=== PATIENT | female | born 1955 | race Caucasian/White ===

== ENCOUNTER 2016-09-05 15:38 | Inpatient (IN) | payer OTHER ==
[~2016-09-05] VITALS: Ht 160 cm; Wt 63.5 kg
[2016-09-05 16:17] LABS: BASOPHILS 0.8 % (0.0-2.0); EOSINOPHILS 14.6 % (0-7); HEMATOCRIT 44.5 % (36.0-48.0); HEMOGLOBIN 15.4 g/dL (12-16); IMMATURE GRANULOCYTES 0.2 % (0-5); MCH 32.5 pg (26.0-34.0); MCHC 34.6 g/dL (31.0-37.0); MCV 93.9 fL (80.0-100.0); MEAN PLATELET VOLUME 9.8 fL (7.4-10.4); MONOCYTES 9.7 % (2-11); NEUTROPHILS 47.7 % (40-80); PLATELET COUNT 228 10x3/uL (130-400); RBC 4.74 10x6/uL (4.00-5.40); RDW 13.4 % (11.5-14.5); WBC 10.8 10x3/uL (4.8-10.8)
[2016-09-05 16:36] LABS: ALBUMIN 3.9 g/dL (3.4-5.0); ALKALINE PHOSPHATASE 85 U/L (46-116); ALT (SGPT) 24 U/L (10-68); CALC OSMOLALITY 273 mosm/kg (275-300); CALCIUM 9.5 mg/dL (8.5-10.1); CARBON DIOXIDE 27.3 mmol/L (21.0-32.0); CHLORIDE - SERUM 103 mmol/L (98-107); CREATININE - SERUM 0.6 mg/dL (0.6-1.3); POTASSIUM - SERUM 4.2 mmol/L (3.5-5.1); PROTEIN - SERUM 7.5 g/dL (6.4-8.2); SODIUM 138 mmol/L (136-145); UREA NITROGEN 9 mg/dL (7-18); eGFR NON AFRICAN AMERICAN > 90 mL/min (90-120)
[2016-09-05 16:37] LABS: GLUCOSE 89 mg/dL (74-106)
[2016-09-05 16:44] LABS: AMYLASE - SERUM 66 U/L (25-115); LIPASE 218 U/L (73-393)
[2016-09-05 18:14] LABS: APPEARANCE CLEAR (CLEAR); BACTERIA FEW /hpf (NONE SEEN); BILIRUBIN NEGATIVE (NEGATIVE); COLOR YELLOW (YELLOW); EPITHELIAL CELLS 0-5 /hpf (0-5); GLUCOSE NEGATIVE (NEGATIVE); KETONE NEGATIVE (NEGATIVE); LEUKOCYTE ESTERASE NEGATIVE (NEGATIVE); NITRITE NEGATIVE (NEGATIVE); PROTEIN 1+ mg/dL (NEGATIVE); SPECIFIC GRAVITY 1.015 (1.005-1.020); UROBILINOGEN NORMAL (NORMAL); WHITE CELLS - URINE 0-5 /hpf (0-5)
--- NOTE | 2016-09-05 19:49 | NUR ---
RECEIVED TO ROOM 2232 FROM ER VIA WHEELCHAIR. FAMILY WITH PT. PT ALERT AND ORIENTED X4. ASSESSMENT AND HISTORY OBTAINED PER FLOWSHEET. MEDICATION LIST AND PHARMACY REVIEWED WITH PT. PT DENIES PAIN. OXYGEN ON 2L VIA NC. RESPIRATIONS EVEN AND UNLABORED. IV TO LEFT WRIST PATENT. CALL LIGHT IN REACH, WILL CONTINUE WITH PLAN OF CARE.
[2016-09-05 20:23] VITALS: BP 159/72; BMI 24.8
[2016-09-05] MEDS ORDERED: PROAIR HFA8.5 GM INH (20:30)
[2016-09-05] MEDS ORDERED: SYMBICORT 80-10.2 GM INH (20:30)
[2016-09-05] MEDS ORDERED: KADIAN100 MG PO (20:31)
--- NOTE | 2016-09-05 21:40 | NUR ---
PT MOVED TO ROOM 2238 DUE TO COMPLICATIONS WITH ROOM 2232. NOTIFIED NURSING NUMBERER AND WIRER AND CHARGE NURSE. PT AMBULATED TO ROOM WITH STANDBY SUPERVISION. CALL LIGHT IN REACH, BED IN LOWEST POSITIONE AND SRX1. WILL CONTINUE WITH PLAN OF CARE.
--- NOTE | 2016-09-05 22:58 | NUR ---
SCHEDULED MEDICATIONS ADMINSITERED AT THIS TIME. IV TO LEFT WRIST PATENT WITH BRISK BLOOD RETURN PRESENT. FRIEND REMAINS AT BEDSIDE. PT DENIES PAIN AT THIS TIME. CALL LIGHT IN REACH, WILL CONTINUE WITH PLAN OF CARE.
--- NOTE | 2016-09-05 23:25 | NUR ---
ASSISTED PT WITH MOVING IV POLE SO THAT SHE COULD AMBUALTE TO THE BATHROOM INDEPENDENTLY. PT STATED THAT SHE HAS BECOME VERY WARM SINCE THE ANTIBIOTIC HAD STARTED. DENIES ANY DIFFICULTY BREATHING, NO ITCHING/RASH AND NO IV SITE IRRITATION. INFUSION RATE SLOWED TO 150 ML/HR. FRIEND REMAINS AT BEDSIDE. EXPLAINED TO PT TO NOTIFY NURSING STAFF IF SYMPTOMS WERE TO WORSEN. PT VERBALIZED UNDERSTANDING. CALL LIGHT IN REACH, WILL CONTINUE WITH PLAN OF CARE.
--- NOTE | 2016-09-06 02:00 | NUR ---
SLEEPING AT THIS TIME. PT SELF POSITIONS FOR COMFORT. RESPIRATIONS EVEN AND UNLABORED. CALL LIGHT IN REACH, WILL CONTINUE WITH PLAN OF CARE.
--- NOTE | 2016-09-06 05:30 | NUR ---
PROVIDED PT WITH FRESH COFFEE AND CREAMER AT THIS TIME. OXYGEN ON 2L. DENIES PAIN. CALL LIGHT IN REACH, WILL CONTINUE WITH PLAN OF CARE.
[2016-09-06] MEDS ORDERED: K-DUR20 MEQ PO (07:11)
[2016-09-06 08:21] VITALS: BP 148/72
--- NOTE | 2016-09-06 08:23 | NUR ---
AWAKE AND ALERT. ORIENTED X3. NO C/O AT THIS TIME. LUNGS WITH ADVANTAGOUS LUNG SOUNDS IN RIGHT UPPER LOBES, OCCASSIONAL DRY COUGH NOTED. SKIN IS INTACT WITHOUT REDNESS. SL TO LEFT HAND PATENT WITHOUT REDNESS AT INSERTION SITE. DENIES NEEDS. SITTING UP ON SIDE OF BED EATING BREAKFAST.
--- NOTE | 2016-09-06 09:30 | NUR ---
ATE MOST OF BREAKFAST. UP IN CHIAR AT BEDSIDE PER SELF. DENIES NEEDS.
[2016-09-06 12:45] VITALS: BP 152/76
--- NOTE | 2016-09-06 13:52 | NUR ---
Patient Name: CLAYTON VEGA Admission Status: ER Accout number: [id number] Admission Date: 09-05-2016 : 1955 Admission Diagnosis: Attending: DOC Current LOS: 1 Anticipated DC Date: 09-09-2016 Planned Disposition: Home Primary Insurance: [facility] PPO Discharge Planning Comments: CM MET WITH PATIENT REGARDING D/C NEEDS AND PLANS. PATIENT STATED SHE LIVES ALONE AND HER DAUGHTER (ANTONY) WILL TRANSPORT HER HOME AT DISCHARGE. THERE ARE 3 STEPS W/RAILS TO ENTER HOME AND NO STAIRS INSIDE. PATIENT IS INDEPENDENT WITH HER CARE AND HAS NO DME AT HOME. PATIENTS PCP IS DR. DIANNE RUSHING AND PHARMACY IS [facility] IN [place]. PATIENT DOES NOT WANT HOME HEALTH AT DISCHARGE. CM WILL CONTINUE TO FOLLOW PATIENT WITH D/C NEEDS AND PLANS. PCP DR[facility] IN [place]- [phone] ANTONY ADAMES (DAUGHTER) [phone] Water Taxi Operator: Christie Jordan Is the patient Alert and Oriented? Yes 0 * How many steps to enter\exit or inside your home? 3 W/RAILS 0 * PCP DR. DIANNE RUSHING 0 * Pharmacy [facility] IN [place] 0 * Preadmission Environment Home Alone 0 * ADLs Independent 0 * Equipment None 0 * List name and contact numbers for known caregivers / representatives who currently or will assist patient after discharge: ANTONY ADAMES (DAUGHTER) [phone] 0 * Community resources currently utilized None 0 * Additional services required to return to the preadmission environment? Yes 0 * Can the patient safely return to the preadmission environment? Yes 0 * Has this patient been hospitalized within the prior 30 days at any hospital? No 0 Grand Total: 0
--- NOTE | 2016-09-06 14:15 | NUR ---
HAD SMALL AMOUNT ON TP AFTER URINATION. NO OBVIOUS SIGNS OF BLEEDING ON EXAM. WILL MONITOR.
--- NOTE | 2016-09-06 14:30 | NUR ---
AMBULATED IN HALLWAY PER SELF WITHOUT O2. SATS AT 88% WITH EXERTION. O2 PLACED AT 2LNC.
[2016-09-06 16:19] VITALS: Ht 160 cm; Wt 63.5 kg
[2016-09-06 16:30] VITALS: BP 120/88
--- NOTE | 2016-09-06 18:21 | NUR ---
ATE ALL OF SUPPER. NO C/O AT THIS TIME. DENIES NEEDS. NO CHANGES NOTED.
[2016-09-06 19:00] VITALS: BP 147/66
--- NOTE | 2016-09-06 19:41 | NUR ---
SCHEDULED MUCINEX ADMINISTERED AT THIS TIME AND IV SALINE LOCKED WITH SWAB CAP IN USE. ASSESSMENT PERFORMED PER FLOWSHEET. OXYGEN ON 2L VIA NC WITH RESPIRATIONS EVEN AND NON LABORED. PT DENIES PAIN. CALL LIGHT IN REACH, WILL CONTINUE WITH PLAN OF CARE.
--- NOTE | 2016-09-06 22:00 | NUR ---
DENIES NEEDS AT THIS TIME. CALL LIGHT IN REACH, STATUS REMAINS UNCHAGED FROM INITIAL ASSESSMENT. BED IN LOWEST POSITION AND LOCKED WITH SRX2. WILL CONTINUE WITH PLAN OF CARE.
[2016-09-07] VITALS: BP 103/53
[2016-09-07 04:00] VITALS: BP 116/57
[2016-09-07 05:05] LABS: BASOPHILS 0 % (0.0-2.0); EOSINOPHILS 0 % (0-7); HEMATOCRIT 38.9 % (36.0-48.0); HEMOGLOBIN 13.2 g/dL (12-16); IMMATURE GRANULOCYTES 0.3 % (0-5); LYMPHOCYTES 6.2 % (15-50); MCH 32.1 pg (26.0-34.0); MCHC 33.9 g/dL (31.0-37.0); MCV 94.6 fL (80.0-100.0); MEAN PLATELET VOLUME 9.9 fL (7.4-10.4); MONOCYTES 5.3 % (2-11); NEUTROPHILS 88.2 % (40-80); PLATELET COUNT 217 10x3/uL (130-400); RBC 4.11 10x6/uL (4.00-5.40); RDW 13.7 % (11.5-14.5); WBC 11.7 10x3/uL (4.8-10.8)
--- NOTE | 2016-09-07 05:24 | NUR ---
AMBULATING IN HALLWAY INDEPENDENTLY AT THIS TIME. DENIES NEEDS, CALL LIGHT IN REACH, WILL CONTINUE WITH PLAN OF CARE.
[2016-09-07 05:27] LABS: CALC OSMOLALITY 273 mosm/kg (275-300); CARBON DIOXIDE 27.8 mmol/L (21.0-32.0); CHLORIDE - SERUM 100 mmol/L (98-107); CREATININE - SERUM 0.6 mg/dL (0.6-1.3); POTASSIUM - SERUM 3.9 mmol/L (3.5-5.1); SODIUM 135 mmol/L (136-145); UREA NITROGEN 11 mg/dL (7-18); eGFR NON AFRICAN AMERICAN > 90 mL/min (90-120)
[2016-09-07 05:38] LABS: GLUCOSE 188 mg/dL (74-106)
[2016-09-07] MEDS ORDERED: ZPAK PO (06:54)
[2016-09-07] MEDS ORDERED: MUCINEX600 MG PO (06:54)
[2016-09-07] MEDS ORDERED: CEFTIN500 MG PO (06:55)
[2016-09-07] MEDS ORDERED: PULMICORT FLEX90 MCG INH (06:55)
--- NOTE | 2016-09-07 07:03 | HP ---
PATIENT: CLAYTON VEGA MEDICAL RECORD: [id number] ACCOUNT: [id number] LOCATION:D.[id number] : 53 ADMISSION DATE: 09/05/16 HISTORY AND PHYSICAL EXAMINATION DATE OF ADMISSION: 09/05/2016 CHIEF COMPLAINT: Shortness of breath. HISTORY OF PRESENT ILLNESS: The patient is a 61-year-old female who resides in [place]. Apparently, she has a PCP in [place]. She has had worsening of cough and congestion, shortness of breath over the past several days. The patient states her PCP's office was closed. Therefore, she ended up coming to [place]. PAST MEDICAL HISTORY: Significant that she is . She had tubal ligation. She has also had history of COPD. FAMILY HISTORY: Father in his 50s due to myocardial infarction. Mother in her 80s, CHF. SOCIAL HISTORY: Born and raised in [place]. 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 MEDICATIONS: Currently are Symbicort ____ b.i.d., Ventolin inhaler 2 puffs q.4 hours p.r.n. shortness of breath. ALLERGIES: No known drug allergies. HABITS: The patient had been a 1 pack per day smoker since her teens, stopped last year. She denies ____ tobacco use or abuse. REVIEW OF SYSTEMS: CONSTITUTIONAL: She denies any headaches, seizures, or syncope. She denies change in vision or auditory acuity. CARDIOVASCULAR: As stated above. GASTROINTESTINAL: No chronic nausea, vomiting, melena or hematochezia. GENITOURINARY: No urgency, frequency, or dysuria. PHYSICAL EXAMINATION: GENERAL: The patient was in some respiratory distress. She had audible wheezes, expiratory. VITAL SIGNS: Her temperature was 98, her pulse was 89, respirations 18, her blood pressure 135/72, and O2 sat was 88% on room air. HEENT: Head is normocephalic. No lesions. Ears: TMs clear. Eyes: Pupils equal, round and reactive to light. Extraocular movements intact. Nasal cavity, oral cavity and oropharynx clear. NECK: Supple. There is no adenopathy. HEART: Has regular rate. LUNGS: She has decreased breath sounds in all hong with end-expiratory wheezes. ABDOMEN: Soft, bowel sounds positive. EXTREMITIES: Lower extremities had no edema. IMAGING: The patient had a chest x-ray. Chest x-ray revealed no cardiomegaly, HISTORY AND PHYSICAL [id number] CLAYTON VEGA no active infiltrate. LABORATORY DATA: She also had a white count showing 10.8, her hemoglobin 15.4, hematocrit is 44.5 and her platelets were 228. Sodium of 138, potassium 4.2, chloride is 103, CO2 is 27, BUN is 9, and creatinine is 0.6. ASSESSMENT: Chronic obstructive pulmonary disease exacerbation. PLAN: The patient is admitted, placed on Solu-Medrol, given updraft therapy as well as IV Solu-Medrol. The patient was placed on Zithromax as well as Rocephin IV, also Mucinex as a mucolytic. TRANSINT:[id number] Voice Confirmation ID: [id number] DOCUMENT ID: [id number] LINDEN IRNCON MD at 0703 CC: [id number] DICTATION DATE: 09/06/16 0855 PATCH MACHINE OPERATOR: 09/06/16 0959 ADM IN [place] [id number] [place] [id number]
--- NOTE | 2016-09-07 07:33 | NUR ---
AWAKE AND ALERT. ORIENTED X3. NO C/O AT THIS TIME. LUNGS ARE CLEAR BUT DIMINISHED, OCCASSIONAL DRY COUGH NOTED. SKIN IS INTACT WITHOUT REDNESS.SL TO LEFT WRIST PATENT WITHOUT REDNESS AT INSERTION SITE. VERY EXCITED TO BE GOING HOME TODAY. DENIES NEEDS.
[2016-09-07 07:54] VITALS: BP 127/61
--- NOTE | 2016-09-07 08:51 | NUR ---
CM REASSESSMENT NOTE: PATIENT IS DISCHARGING HOME TODAY-DAUGHTER TRANSPORTING PATIENT HOME. PATIENT DENIED ANY NEEDS AT DISCHARGE.
--- NOTE | 2016-09-07 10:03 | NUR ---
DISCHARGED TO HOME AMBULATORY WITH FAMILY. DISCHARGE INSTRUCTIONS GIVEN BOTH VERBALLY AND WRITTEN. ALL QUESTIONS ANSWERED. PATIENT VERBALIZED UNDERSTANDING OF SAME. NEEDED PRESCRIPTIONS GIVEN TO PATIENT. SL TO LEFT WRIST D/C WITH CATHETER INTACT.
--- NOTE | 2016-09-26 13:51 | DS ---
PATIENT:CLAYTON VEGA :53 MEDICAL RECORD: [id number] DISCHARGE SUMMARY ADMISSION DATE: 09/05/16 DISCHARGE DATE: 09/07/16 DATE OF ADMISSION: 09/05/2016 DATE OF DISCHARGE: 09/07/2016 CONDITION ON DISCHARGE: Improved. ADMITTING DIAGNOSES: Chronic obstructive pulmonary disease exacerbation. HOSPITAL COURSE: A 61-year-old female who resides in [place]. The patient has a PCP in [place]. She states that she had developed a cough, congestion, shortness of breath. She states her primary care physician was closed; therefore she presented to [facility] and admitted to my service on unassigned medicine. PHYSICAL EXAMINATION: GENERAL: The patient was in some respiratory distress. She had audible wheezes as well as expiratory wheezes. VITAL SIGNS: Her temperature was 98, her pulse was 89, respirations 18, her blood pressure 135/72 and O2 sat was 88% on room air. HEENT: Normal. HEART: Had regular rhythm. No murmurs, gallops or rubs. LUNGS: She had an expiratory wheeze in all hong. ABDOMEN: Soft, bowel sounds are positive. LABORATORY DATA: The patient had a chest x-ray showing no cardiomegaly, no active infiltrate. The patient had a white count of 10.8, her hemoglobin 15.4, hematocrit of 44.5, and platelets 228. Sodium 138, potassium 4.2, chloride is 103, CO2 is 27, BUN is 9, creatinine 0.1. The patient was admitted and placed on Solu-Medrol as well as Zithromax, updraft therapy, DuoNeb was given. Over the following days, the patient's condition continued to improve. PHYSICAL EXAMINATION: VITAL SIGNS: On , her O2 sat was 91%, which is chronic for the patient. Her blood pressure 103/53, her pulse ox at bedside was 93%, with ambulation dropped to 91, temperature was 98. HEENT: Normal. NECK: Neck is supple. There is no adenopathy. HEART: Regular rhythm. No murmurs, gallops or rubs. LUNGS: She had no ____ expiratory wheezes. She had decreased breath sounds in all hong. ABDOMEN: Soft. Bowel sounds are positive. LABORATORY DATA: The patient's white count is 11.7. This was felt to be secondary to steroids, hemoglobin 13.2, hematocrit of 38.9, her platelets were 217. Sodium was 135, potassium 3.9, chloride is 100, BUN was 11, creatinine is 0.6, glucose of 188, felt to be secondary to steroids as well. Therefore, the patient was discharged. DISCHARGE INSTRUCTIONS: She was to be on a regular diet. Her activities were DISCHARGE SUMMARY REPORT [id number] CLAYTON VEGA ad andriy. Patient was not to smoke. The patient also had medications, which include Mucinex 600 mg p.o. b.i.d., Z-Evan to take as directed, Ceftin 500 mg p.o. b.i.d., Pulmicort Flexhaler 90 mcg 2 puffs b.i.d. The patient was also on ProAir 90 mcg 2 puffs q. 4 hours p.r.n. shortness of breath. She will follow up with her physician later on this week. ACTIVITIES: Ad andriy. DIET: Regular. TRANSINT:[id number] Voice Confirmation ID: [id number] DOCUMENT ID: [id number] LINDEN RINCON MD at 1351 CC: [id number] DICTATION DATE: 09/07/16 0702 BATTERY CONTAINER TESTER ALUMINUM: 09/07/16 0902 DIS IN 09/07/16 [place] [id number] [place] [address]
== END 2016-09-07 10:04 | disposition home or self-care (01) | DRG 192 ==
LOC: D.ER 15:38 → D.MS 19:18
PROVIDERS: Emergency Medicine; Physician Assistant; ADMIT Family Medicine
DX: J44.1 Chronic obstructive pulmonary disease with (acute) exacerbation (principal); F17.200 Nicotine dependence, unspecified, uncomplicated